=== PATIENT | male | born 1960 | race Caucasian/White ===

== ENCOUNTER 2024-02-05 02:44 | Inpatient (IN) | payer BC ==
[2024-02-05 04:01] VITALS: BMI 21.8
[2024-02-05 05:03] LABS: #Basophils 0.08 10x3/uL (0.0-0.2); %Basophils 0.9 % (0.0-1.0); %Monocytes 19.1 % (0.0-10.0); %Neutrophils 66.4 % (42.0-75.0); Hematocrit 32.8 % (42.0-52.0); Hemoglobin 11.1 g/dL (14.0-18.0); Mean Corpuscular HGB CONC 33.8 g/dL (32.0-36.0); Mean Corpuscular Hemoglobin 28.9 pg (27.0-31.0); Mean Corpuscular Volume 85.4 fL (78.0-98.0); Mean Platelet Volume 10.1 fL (7.4-10.4); Platelet Count 397 10x3/uL (130-400); RBC Distribution Width 19.8 % (11.5-14.5); Red Blood Cell (RBC) Count 3.84 mill/uL (4.70-6.10)
[2024-02-05 05:48] LABS: Troponin I Less than 0.010 ng/mL (< 0.028)
[2024-02-05] MEDS ORDERED: traMADol HCl 50 MG TAB PO PRN (05:57)
[2024-02-05] MEDS: Levothyroxine 175 MCG TAB PO SCH (06:05)
[2024-02-05] MEDS: Sodium Chloride 0.9% 1,000 ML IV SCH (06:05)
[2024-02-05 06:13] LABS: ALT (SGPT) 26 U/L (8-55); AST (SGOT) 37 U/L (5-34); Albumin 2.5 g/dL (3.4-4.8); Alkaline Phosphatase 135 U/L (40-110); Anion Gap 15 mmol/L (10-20); BUN (Urea Nitrogen) 8 mg/dL (8.4-25.7); Bilirubin, Total 0.7 mg/dL (0.2-1.2); Calc. Creatinine Clearance 100 mL/min (70-130); Calcium 8.8 mg/dL (7.8-10.44); Carbon Dioxide 16 mmol/L (23-31); Cardiac Risk 4.2 (Less than 4.5); Chloride 94 mmol/L (98-107); Cholesterol 108 mg/dl (< 200 Desired); Estimated GFR 104; Globulin 3.9 g/dL (2.4-3.5); Glucose 92 mg/dL (80-115); HDL Cholesterol 26 mg/dL (>60 Neg Risk); LDL Cholesterol, Calculated 69 mg/dL; Potassium 4.8 mmol/L (3.5-5.1); Protein, Total 6.4 g/dL (5.8-8.1); Sodium 120 mmol/L (136-145); Triglycerides 63 mg/dL (Less than 150)
[2024-02-05] MEDS ORDERED: Sodium Chloride 0.9% 1,000 ML IV SCH (06:30)
[2024-02-05 06:40] LABS: Hemoglobin A1c 5.1 % (4.0-6.0)
[2024-02-05 08:02] LABS: Troponin I Less than 0.010 ng/mL (< 0.028)
[2024-02-05] MEDS ORDERED: Cosyntropin 250 MCG VIAL SLOW IVP SCH (09:30)
[2024-02-05] MEDS: ADMIXTURE FEE IVPB SCH (10:30)
[2024-02-05] MEDS: IN SODIUM CHLORIDE IVPB SCH (10:30)
[2024-02-05 10:31] LABS: Sodium 121 mmol/L (136-145)
[2024-02-05] MEDS: Lidocaine 2% Viscous Solution 20 ML, Aluminum & Magnesium Hydroxide 30 ML, Donnatal Eli... SSW SCH (10:31)
[2024-02-05] MEDS: Apixaban 2.5 MG TAB PO SCH (10:34)
[2024-02-05] MEDS: Hydrocortisone Sod Succ/PF 100 mg/2 ml Vial IVP SCH ×2 (10:54→18:19)
[2024-02-05] MEDS ORDERED: Hydrocortisone Sod Succ/PF 100 mg/2 ml Vial IVP SCH (12:00)
[2024-02-05] MEDS ORDERED: Promethazine 25 MG TAB PO PRN (16:55)
[2024-02-05 16:59] LABS: Sodium 126 mmol/L (136-145)
[2024-02-05] MEDS: Apixaban 5 MG TAB PO SCH (20:10)
[2024-02-05] MEDS: Pantoprazole DR 40 MG TAB PO SCH (20:10)
[2024-02-05] MEDS: Tamsulosin HCl 0.4 MG CAP PO SCH (20:10)
[2024-02-05] MEDS: Metoprolol Tartrate 25 MG TAB PO SCH (20:10)
[2024-02-05] MEDS: Sacubitril 24MG/Valsartan 26 MG TAB PO SCH (20:11)
[2024-02-05] MEDS: Acetaminophen 325 MG TAB PO PRN (23:44)
[2024-02-05] MEDS: Polyethylene Glycol 3350 17 GM Packet PO SCH (23:44)
[2024-02-06 04:29] LABS: #Basophils Less than 0.03 10x3/uL (0.0-0.2); #Eosinphils Less than 0.03 10x3/uL (0.0-0.7); %Basophils 0.2 % (0.0-1.0); %Lymphocytes 4.3 % (21.0-51.0); %Monocytes 10.7 % (0.0-10.0); %Neutrophils 84.2 % (42.0-75.0); Hematocrit 32.3 % (42.0-52.0); Hemoglobin 11.1 g/dL (14.0-18.0); Mean Corpuscular HGB CONC 34.4 g/dL (32.0-36.0); Mean Corpuscular Hemoglobin 28.2 pg (27.0-31.0); Mean Platelet Volume 9.5 fL (7.4-10.4); Platelet Count 515 10x3/uL (130-400); RBC Distribution Width 18.6 % (11.5-14.5); Red Blood Cell (RBC) Count 3.94 mill/uL (4.70-6.10)
[2024-02-06 04:48] LABS: ALT (SGPT) 22 U/L (8-55); AST (SGOT) 29 U/L (5-34); Albumin 2.6 g/dL (3.4-4.8); Alkaline Phosphatase 139 U/L (40-110); Anion Gap 13 mmol/L (10-20); BUN (Urea Nitrogen) 7 mg/dL (8.4-25.7); Bilirubin, Total 0.6 mg/dL (0.2-1.2); Calc. Creatinine Clearance 88 mL/min (70-130); Calcium 9.3 mg/dL (7.8-10.44); Carbon Dioxide 23 mmol/L (23-31); Chloride 95 mmol/L (98-107); Estimated GFR 100; Globulin 4.4 g/dL (2.4-3.5); Glucose 135 mg/dL (80-115); Potassium 4.8 mmol/L (3.5-5.1); Sodium 126 mmol/L (136-145)
[2024-02-06] MEDS: Levothyroxine 175 MCG TAB PO SCH (05:18)
[2024-02-06] MEDS: Cosyntropin 250 MCG VIAL SLOW IVP SCH (07:40)
[2024-02-06 08:30] VITALS: BMI 21.7
[2024-02-06] MEDS: Amiodarone 200 MG TAB PO SCH (08:32)
[2024-02-06] MEDS: Polyethylene Glycol 3350 17 GM Packet PO SCH (08:33)
[2024-02-06] MEDS: Melatonin 3 MG TAB PO SCH (20:50)
[2024-02-07] MEDS ORDERED: QUEtiapine 25 MG TAB PO SCH (00:15)
[2024-02-07] MEDS: Melatonin 3 MG TAB PO SCH (00:48)
[2024-02-07] MEDS: Prochlorperazine Maleate 5 MG TAB PO PRN (02:25)
[2024-02-07 09:14] LABS: #Basophils 0.04 10x3/uL (0.0-0.2); %Basophils 0.3 % (0.0-1.0); %Eosinophils 0.2 % (0.0-10.0); %Lymphocytes 10.5 % (21.0-51.0); %Monocytes 14.6 % (0.0-10.0); %Neutrophils 73.7 % (42.0-75.0); Hematocrit 28.8 % (42.0-52.0); Hemoglobin 10.2 g/dL (14.0-18.0); Mean Corpuscular HGB CONC 35.4 g/dL (32.0-36.0); Mean Corpuscular Hemoglobin 28.8 pg (27.0-31.0); Mean Corpuscular Volume 81.4 fL (78.0-98.0); Mean Platelet Volume 9.3 fL (7.4-10.4); Platelet Count 482 10x3/uL (130-400); RBC Distribution Width 18.1 % (11.5-14.5); Red Blood Cell (RBC) Count 3.54 mill/uL (4.70-6.10)
[2024-02-07 10:15] LABS: ALT (SGPT) 22 U/L (8-55); AST (SGOT) 28 U/L (5-34); Albumin 2.5 g/dL (3.4-4.8); Alkaline Phosphatase 114 U/L (40-110); Anion Gap 8 mmol/L (10-20); BUN (Urea Nitrogen) 10 mg/dL (8.4-25.7); Bilirubin, Total 0.6 mg/dL (0.2-1.2); Calc. Creatinine Clearance 96 mL/min (70-130); Calcium 8.9 mg/dL (7.8-10.44); Carbon Dioxide 23 mmol/L (23-31); Chloride 96 mmol/L (98-107); Estimated GFR 103; Globulin 3.8 g/dL (2.4-3.5); Glucose 104 mg/dL (80-115); Potassium 4.4 mmol/L (3.5-5.1); Protein, Total 6.3 g/dL (5.8-8.1); Sodium 123 mmol/L (136-145)
[2024-02-07] MEDS: Hydrocortisone Sod Succ/PF 100 mg/2 ml Vial IVP SCH (12:11)
[2024-02-07] MEDS: Sodium Chloride 1 GM TAB PO SCH (14:51)
[2024-02-07 15:27] LABS: Anion Gap 12 mmol/L (10-20); BUN (Urea Nitrogen) 11 mg/dL (8.4-25.7); Calc. Creatinine Clearance 88 mL/min (70-130); Calcium 8.7 mg/dL (7.8-10.44); Carbon Dioxide 24 mmol/L (23-31); Chloride 95 mmol/L (98-107); Estimated GFR 100; Glucose 106 mg/dL (80-115); Potassium 4.5 mmol/L (3.5-5.1); Sodium 126 mmol/L (136-145)
[2024-02-07] MEDS: Benzonatate 100 MG CAP PO SCH ×2 (18:47→21:07)
[2024-02-07 19:55] LABS: Bacteria/HPF None Seen HPF (None Seen); Bilirubin Negative (Negative); Blood, Urine Negative (Negative); Clarity Turbid (Clear); Glucose, Urine (Dipstick) Normal (Negative); Ketone, Urine Trace mg/dL (Negative); Leukocyte Negative Leu/uL (Negative); Nitrite Negative (Negative); Protein, Urine (Dipstick) 10 mg/dL (Neg-Trace); RBC/HPF 0-3 HPF (0-3); Specific Gravity, Urine 1.017 (1.002-1.036); Squamous Epithelial None Seen HPF (0-3); Urobilinogen Normal mg/dL (Less than 2); WBC/HPF 0-3 HPF (0-3)
[2024-02-07] MEDS ORDERED: Lidocaine 2% Jelly 5 ML TUBE TOP PRN (23:20)
[2024-02-07] MEDS: traZODone HCl 50 MG TAB PO PRN (23:44)
[2024-02-08] MEDS: Lidocaine 2% 6 ML (Jelly) SYR TOP PRN (03:21)
[2024-02-08 05:18] LABS: #Basophils Less than 0.03 10x3/uL (0.0-0.2); #Eosinphils Less than 0.03 10x3/uL (0.0-0.7); %Basophils 0.3 % (0.0-1.0); %Lymphocytes 10.6 % (21.0-51.0); %Neutrophils 76.6 % (42.0-75.0); Hematocrit 32.2 % (42.0-52.0); Hemoglobin 11.1 g/dL (14.0-18.0); Mean Corpuscular HGB CONC 34.5 g/dL (32.0-36.0); Mean Corpuscular Hemoglobin 27.8 pg (27.0-31.0); Mean Corpuscular Volume 80.7 fL (78.0-98.0); Mean Platelet Volume 9.5 fL (7.4-10.4); Platelet Count 500 10x3/uL (130-400); RBC Distribution Width 18.7 % (11.5-14.5); Red Blood Cell (RBC) Count 3.99 mill/uL (4.70-6.10)
[2024-02-08 05:44] LABS: ALT (SGPT) 23 U/L (8-55); AST (SGOT) 35 U/L (5-34); Albumin 2.5 g/dL (3.4-4.8); Alkaline Phosphatase 112 U/L (40-110); Anion Gap 12 mmol/L (10-20); BUN (Urea Nitrogen) 11 mg/dL (8.4-25.7); Bilirubin, Total 0.6 mg/dL (0.2-1.2); Calc. Creatinine Clearance 102 mL/min (70-130); Calcium 8.6 mg/dL (7.8-10.44); Carbon Dioxide 21 mmol/L (23-31); Chloride 96 mmol/L (98-107); Estimated GFR 104; Globulin 3.8 g/dL (2.4-3.5); Glucose 105 mg/dL (80-115); Potassium 4.4 mmol/L (3.5-5.1); Protein, Total 6.3 g/dL (5.8-8.1); Sodium 125 mmol/L (136-145)
[2024-02-08] MEDS: Fludrocortisone Acetate 0.1 MG TAB PO SCH (13:16)
[2024-02-08] MEDS ORDERED: Lactulose 20 GM (30 mL) UDCUP PO PRN (13:33)
[2024-02-08] MEDS: Hydrocortisone 10 mg Tablet PO SCH (20:31)
[2024-02-08] MEDS ORDERED: Hydrocortisone 10 mg Tablet PO SCH (21:00)
[2024-02-09] MEDS: traMADol HCl 50 MG TAB PO PRN ×2 (01:54→20:48)
[2024-02-09 04:34] LABS: #Basophils 0.04 10x3/uL (0.0-0.2); %Basophils 0.5 % (0.0-1.0); %Eosinophils 0.4 % (0.0-10.0); %Lymphocytes 16.6 % (21.0-51.0); %Neutrophils 67.8 % (42.0-75.0); Hematocrit 28.2 % (42.0-52.0); Hemoglobin 9.8 g/dL (14.0-18.0); Mean Corpuscular HGB CONC 34.8 g/dL (32.0-36.0); Mean Corpuscular Hemoglobin 28.1 pg (27.0-31.0); Mean Corpuscular Volume 80.8 fL (78.0-98.0); Mean Platelet Volume 9.9 fL (7.4-10.4); Platelet Count 462 10x3/uL (130-400); RBC Distribution Width 18.8 % (11.5-14.5); Red Blood Cell (RBC) Count 3.49 mill/uL (4.70-6.10)
[2024-02-09 05:09] LABS: ALT (SGPT) 24 U/L (8-55); AST (SGOT) 36 U/L (5-34); Albumin 2.3 g/dL (3.4-4.8); Alkaline Phosphatase 107 U/L (40-110); Anion Gap 7 mmol/L (10-20); BUN (Urea Nitrogen) 12 mg/dL (8.4-25.7); Bilirubin, Total 0.4 mg/dL (0.2-1.2); Calc. Creatinine Clearance 102 mL/min (70-130); Calcium 8.1 mg/dL (7.8-10.44); Carbon Dioxide 20 mmol/L (23-31); Chloride 99 mmol/L (98-107); Estimated GFR 104; Globulin 3.2 g/dL (2.4-3.5); Glucose 99 mg/dL (80-115); Potassium 3.4 mmol/L (3.5-5.1); Protein, Total 5.5 g/dL (5.8-8.1); Sodium 123 mmol/L (136-145)
[2024-02-09] MEDS: Potassium Chloride 20 MEQ TAB PO SCH (06:56)
[2024-02-09] MEDS: Fludrocortisone Acetate 0.1 MG TAB PO SCH (09:33)
[2024-02-09] MEDS: Hydrocortisone 10 mg Tablet PO SCH ×3 (09:35→20:47)
[2024-02-09] MEDS: Furosemide 40 MG (4 mL) VIAL SLOW IVP SCH (09:35)
[2024-02-09] MEDS: Sodium Chloride 256 MEQ in Sterile Water 936 ML IV SCH (09:37)
[2024-02-09 13:22] LABS: Anion Gap 8 mmol/L (10-20); BUN (Urea Nitrogen) 11 mg/dL (8.4-25.7); Calc. Creatinine Clearance 91 mL/min (70-130); Calcium 8.7 mg/dL (7.8-10.44); Carbon Dioxide 24 mmol/L (23-31); Chloride 99 mmol/L (98-107); Estimated GFR 101; Glucose 100 mg/dL (80-115); Potassium 3.9 mmol/L (3.5-5.1); Sodium 127 mmol/L (136-145)
[2024-02-09 20:49] LABS: Anion Gap 11 mmol/L (10-20); BUN (Urea Nitrogen) 13 mg/dL (8.4-25.7); Calc. Creatinine Clearance 89 mL/min (70-130); Calcium 8.3 mg/dL (7.8-10.44); Carbon Dioxide 24 mmol/L (23-31); Chloride 100 mmol/L (98-107); Estimated GFR 100; Glucose 89 mg/dL (80-115); Potassium 4.2 mmol/L (3.5-5.1); Sodium 131 mmol/L (136-145)
[2024-02-10 04:27] LABS: #Basophils 0.05 10x3/uL (0.0-0.2); %Basophils 0.9 % (0.0-1.0); %Eosinophils 1.8 % (0.0-10.0); %Lymphocytes 23.3 % (21.0-51.0); %Monocytes 15.6 % (0.0-10.0); %Neutrophils 57.5 % (42.0-75.0); Hematocrit 27.8 % (42.0-52.0); Hemoglobin 9.8 g/dL (14.0-18.0); Mean Corpuscular HGB CONC 35.3 g/dL (32.0-36.0); Mean Corpuscular Hemoglobin 28.2 pg (27.0-31.0); Mean Corpuscular Volume 80.1 fL (78.0-98.0); Mean Platelet Volume 9.6 fL (7.4-10.4); Platelet Count 408 10x3/uL (130-400); Red Blood Cell (RBC) Count 3.47 mill/uL (4.70-6.10)
[2024-02-10 06:40] LABS: Anion Gap 9 mmol/L (10-20); BUN (Urea Nitrogen) 13 mg/dL (8.4-25.7); Calc. Creatinine Clearance 99 mL/min (70-130); Calcium 7.9 mg/dL (7.8-10.44); Carbon Dioxide 20 mmol/L (23-31); Chloride 107 mmol/L (98-107); Estimated GFR 103; Glucose 80 mg/dL (80-115); Potassium 3.7 mmol/L (3.5-5.1); Sodium 132 mmol/L (136-145)
[2024-02-10] MEDS ORDERED: Hydrocortisone 10 mg Tablet PO SCH (09:00)
[2024-02-10] MEDS: Sodium Chloride 256 MEQ in Sterile Water 936 ML IV SCH (09:07)
[2024-02-10] MEDS: Hydrocortisone 10 mg Tablet PO SCH (12:00)
[2024-02-10 16:42] VITALS: BP 115/70; TEMP 98
== END 2024-02-10 17:04 | disposition home or self-care (01) | DRG 644 ==
LOC: T4-B 02:57 → INTOOBSV 02:57 → 2NO 03:09 → OBSVTOIN 02-06 08:00
PROVIDERS: ADMIT Emergency Medicine; ATTEND Emergency Medicine
DX: E22.2 Syndrome of inappropriate secretion of antidiuretic hormone (principal); C22.0 Liver cell carcinoma; C79.70 Secondary malignant neoplasm of unspecified adrenal gland; I48.0 Paroxysmal atrial fibrillation; N40.0 Benign prostatic hyperplasia without lower urinary tract symptoms; E86.1 Hypovolemia; I50.9 Heart failure, unspecified; I11.0 Hypertensive heart disease with heart failure; F17.210 Nicotine dependence, cigarettes, uncomplicated; E87.5 Hyperkalemia; E03.9 Hypothyroidism, unspecified; Z88.0 Allergy status to penicillin; Z79.890 Hormone replacement therapy; Z79.899 Other long term (current) drug therapy; Z90.49 Acquired absence of other specified parts of digestive tract
CPT/HCPCS: 36415; 36416; 80048; 80053; 80061; 80400; 81001; 82140; 82533; 83036; 83930; 83935; 84300; 84484; 84550; 85025; 93005; 93010; 93306; 96374; 96375; 96376; A4217; G0378; J0834; J1720; J1940; J7050; J7131; Q0164